=== PATIENT | female | born 1950 | race Two or more races ===

== ENCOUNTER 2018-07-04 17:06 | Emergency (ER) | payer MEDICAID ==
[~2018-07-04] VITALS: Ht 147.3 cm; Wt 68.5 kg
[~2018-07-04 17:06] MED LIST: ACET-868 PO; ACID1TAB14 PO; ATOR20TA PO; CALC667C6 PO; DOCU-141 PO; HEPA500014 SQ; HYDR-3974 PO; INSU100I14 SQ; INSU100V7 SQ; INSU3INS6 SUBCUT; LIDO30CR TP; OMEP20TA5 PO; POLY17PO29 PO
--- NOTE | 2018-07-04 17:06 | NUR ---
PT BIB [facility] FROM [facility],C/O CHEST PAIN,NTG SPRAY AND ASA 162 MG PO GIVEN BY EMS, PT IS AAOX3 HEBREW SPEAKING ONLY, HOOKED TO MONITOR, KEPT RESTED AND COMFORTABLE, WILL CONTINUE TO MONITOR.
--- NOTE | 2018-07-04 17:40 | NUR ---
SEEN AND EXAMINED BY DR. CARDONA.
[2018-07-04] MEDS ORDERED: INSU100I26 SQ (17:43)
[2018-07-04] MEDS ORDERED: BLOO-668 IN (17:43)
[2018-07-04] MEDS ORDERED: METO25TA6 PO (17:43)
[2018-07-04] MEDS ORDERED: METO-295 PO (17:43)
[2018-07-04] MEDS ORDERED: ACET-868 PO (17:43)
[2018-07-04] MEDS ORDERED: MAGN400O6 PO (17:43)
[2018-07-04] MEDS ORDERED: BISA10SU8 RC (17:43)
[2018-07-04] MEDS ORDERED: FOLI0.8T2 PO (17:43)
[2018-07-04] MEDS ORDERED: AMLO10TA7 PO (17:43)
[2018-07-04] MEDS ORDERED: NA P133E RC (17:43)
[2018-07-04] MEDS ORDERED: CLON0.1T PO (17:43)
[2018-07-04] MEDS ORDERED: LISI-603 PO (17:43)
[2018-07-04] MEDS ORDERED: INSU100I34 SQ (17:43)
[2018-07-04 18:17] LABS: BASOPHILS # (AUTO) 0.1 /CMM (0.0-0.2); BASOPHILS % (AUTO) 1.2 % (0.0-2.0); EOSINOPHILS % (AUTO) 4.3 % (0.0-6.0); HEMATOCRIT 38 % (33-45); HEMOGLOBIN 12.4 g/dL (11.5-14.8); LYMPHOCYTES # (AUTO) 0.8 /CMM (0.8-4.8); LYMPHOCYTES % (AUTO) 12.7 % (20.0-44.0); MEAN CORPUSCULAR HGB CONC 33 g/dl (31.0-36.0); MEAN CORPUSCULAR VOLUME 94 fL (82-100); MONOCYTES # (AUTO) 0.6 /CMM (0.1-1.30); MONOCYTES % (AUTO) 9.3 % (2.0-12.0); NEUTROPHILS # (AUTO) 4.5 /CMM (1.8-8.9); NEUTROPHILS % (AUTO) 72.5 % (43.0-81.0); PLATELET COUNT (AUTO) 150 /CMM (150-450); WHITE BLOOD COUNT (AUTO) 6.3 K/uL (4.3-11.0)
[2018-07-04] MEDS ORDERED: ACETAMINOPHEN ES 500 MG TABLET ONE (18:24)
[2018-07-04] MEDS: ACETAMINOPHEN ES 500 MG TABLET PO ONE (18:26)
[2018-07-04 18:28] LABS: CALCIUM, SERUM 9.6 mg/dL (8.5-10.1); CARBON DIOXIDE 31 mmol/L (21-32); CHLORIDE 98 mmol/L (98-107); CREATININE 3.2 mg/dL (0.6-1.3); GLUCOSE 180 mg/dL (74-106); POTASSIUM 3.2 mmol/L (3.5-5.1); SODIUM SERUM 139 mmol/L (136-145); UREA NITROGEN, BLOOD 20 mg/dL (7-18)
[2018-07-04 18:37] LABS: ALANINE AMINOTRANSFERASE 15 U/L (12-78); ALBUMIN 4.1 g/dL (3.4-5.0); ALKALINE PHOSPHATASE 137 U/L (46-116); ASPARTATE AMINOTRANSFERASE 11 U/L (15-37); BILIRUBIN,DIRECT 0.2 mg/dL (0.0-0.2); BILIRUBIN,TOTAL 0.5 mg/dL (0.2-1.0); TOTAL PROTEIN, SERUM 8.2 g/dL (6.4-8.2)
--- NOTE | 2018-07-04 19:38 | NUR ---
REPORT GIVEN TO ANY BELTRAN FOR TI.
--- NOTE | 2018-07-04 19:45 | NUR ---
Pt hypertensive on the monitor. ER aware.
--- NOTE | 2018-07-04 20:37 | NUR ---
Ultrasound at bedside.
[2018-07-04] MEDS: CLONIDINE HCL 0.1 MG TABLET PO ONE (21:15)
--- NOTE | 2018-07-04 21:15 | NUR ---
CALLED [facility] FOR TRANSPORT ETA OF 3612 WAS GIVEN. TRIP#[id number]
[2018-07-04] MEDS ORDERED: CLONIDINE HCL 0.1 MG TABLET ONE (21:16)
--- NOTE | 2018-07-04 22:45 | NUR ---
Patient discharged to home in stable condition. Written and verbal after care instructions given. Patient verbalizes understanding of instruction. IV removed. Catheter intact and site benign. Pressure and 4x4 applied to site. No bleeding noted.
--- NOTE | 2018-07-04 22:45 | NUR ---
GAVE REPORT TO BIANCA FROM [place] [id number] FOR TRANSPORTATION TI
[2018-07-04 22:53] VITALS: BP 185/71
--- NOTE | 2018-07-04 22:53 | NUR ---
ANAND BROOKS FROM [facility] PT RETURNING BACK TO FACILITY
== END 2018-07-04 22:54 | disposition home or self-care (01) ==
LOC: ER 17:10
DX: R07.89 Other chest pain (principal); E11.22 Type 2 diabetes mellitus with diabetic chronic kidney disease; I12.0 Hypertensive chronic kidney disease with stage 5 chronic kidney disease or end stage renal disease; N18.6 End stage renal disease; E78.5 Hyperlipidemia, unspecified; I73.9 Peripheral vascular disease, unspecified; Z99.2 Dependence on renal dialysis; Z98.890 Other specified postprocedural states; Z79.4 Long term (current) use of insulin
CPT/HCPCS: 36415; 71045-TC; 80048-TC; 80076-TC; 84484-TC; 85025-TC; 85730-TC; 93971-TC

== ENCOUNTER 2022-08-01 12:54 | Emergency (ER) | payer MEDICAID ==
[~2022-08-01] VITALS: Ht 162.6 cm; Wt 63.5 kg
[~2022-08-01 12:54] MED LIST changes: -ACID1TAB14 PO; +AMLO-213 PO; -ATOR20TA PO; +BISA10SU11 RC; +BLOO-668 IN; +CLON0.1T PO; +FOLI0.8T2 PO; -HEPA500014 SQ; -INSU100I14 SQ; +INSU100I26 SQ; +INSU100I34 SQ; -INSU100V7 SQ; -INSU3INS6 SUBCUT; -LIDO30CR TP; +LISI20TA30 PO; +MAGN400O6 PO; +METO-295 PO; +METO25TA6 PO; +NA P133E RC; -OMEP20TA5 PO; -POLY17PO29 PO
--- NOTE | 2022-08-01 13:00 | NUR ---
BIB [facility], FINISHED HER TREATMENT AND FISTULA WOULD NOT STOP BLEEDING, FISTULA IS ON HER LEFT UPPER ARM
[2022-08-01] MEDS ORDERED: ONDANSETRON HCL/PF 4 MG/2 ML VIAL IV ONE (13:30)
--- NOTE | 2022-08-01 13:30 | NUR ---
LAB AT BEDSIDE FOR BLOOD DRAW
[2022-08-01] MEDS ORDERED: ONDANSETRON 4 MG TAB.RAPDIS SL ONE (14:00)
--- NOTE | 2022-08-01 14:01 | NUR ---
NO S/S OF BLEEDING ON THE FISTULA SITE
[2022-08-01 14:02] LABS: BASOPHILS # (AUTO) 0.2 K/uL (0.0-0.2); BASOPHILS % (AUTO) 3.6 % (0.0-2.0); EOSINOPHILS % (AUTO) 6.9 % (0.0-6.0); HEMATOCRIT 40 % (33-45); HEMOGLOBIN 12.8 g/dL (11.5-14.8); LYMPHOCYTES # (AUTO) 0.6 K/uL (0.8-4.8); LYMPHOCYTES % (AUTO) 14.6 % (20.0-44.0); MEAN CORPUSCULAR HGB CONC 32 g/dl (31.0-36.0); MEAN CORPUSCULAR VOLUME 88 fL (82-100); MONOCYTES # (AUTO) 0.4 K/uL (0.1-1.30); MONOCYTES % (AUTO) 8.2 % (2.0-12.0); NEUTROPHILS # (AUTO) 2.9 K/uL (1.8-8.9); NEUTROPHILS % (AUTO) 66.7 % (43.0-81.0); PLATELET COUNT (AUTO) 125 K/uL (150-450); RED BLOOD CELL COUNT(AUTO) 4.51 MIL/uL (4.0-5.2); WHITE BLOOD COUNT (AUTO) 4.4 K/uL (4.3-11.0)
[2022-08-01] MEDS ORDERED: ONDANSETRON 4 MG TAB.RAPDIS ONE (14:11)
[2022-08-01 14:39] LABS: ALANINE AMINOTRANSFERASE 14 U/L (12-78); ALBUMIN 3.8 g/dL (3.4-5.0); ALKALINE PHOSPHATASE 185 U/L (46-116); ASPARTATE AMINOTRANSFERASE 17 U/L (15-37); BILIRUBIN,DIRECT 0.2 mg/dL (0.0-0.2); BILIRUBIN,TOTAL 0.6 mg/dL (0.2-1.0); CALCIUM, SERUM 9.1 mg/dL (8.5-10.1); CARBON DIOXIDE 25 mmol/L (21-32); CHLORIDE 95 mmol/L (98-107); GLUCOSE 146 mg/dL (74-106); POTASSIUM 4.4 mmol/L (3.5-5.1); SODIUM SERUM 134 mmol/L (136-145); TOTAL PROTEIN, SERUM 7.7 g/dL (6.4-8.2); UREA NITROGEN, BLOOD 41 mg/dL (7-18)
--- NOTE | 2022-08-01 14:52 | NUR ---
PATIENT ON BED LYING QUITELY RESTING AND SLEEPING
[2022-08-01] MEDS ORDERED: CLONIDINE HCL 0.1 MG TABLET PO ONE (15:30)
[2022-08-01] MEDS ORDERED: CLONIDINE HCL 0.1 MG TABLET ONE (15:34)
[2022-08-01 16:23] VITALS: BP 164/67
--- NOTE | 2022-08-01 16:47 | NUR ---
CALLED [facility] FOR TRANSPORT ETA 30 MINS.
--- NOTE | 2022-08-01 17:08 | NUR ---
[facility] [phone] SISTER CELL #
--- NOTE | 2022-08-01 17:19 | NUR ---
CALLED KELSEAJyotsna SALAZAR [phone] RN [employer] FINISHER PRITI AWARE OF PT RETURNING.
--- NOTE | 2022-08-01 17:19 | NUR ---
report given to EMT transport for TI. [facility] Manuel Garber called,spoke with Liliam,fertilizer processing supervisor, aware that patient is on the way.
== END 2022-08-01 17:22 | disposition home or self-care (01) ==
LOC: ER 12:54
DX: I12.0 Hypertensive chronic kidney disease with stage 5 chronic kidney disease or end stage renal disease (principal); N18.6 End stage renal disease; D63.1 Anemia in chronic kidney disease; E78.5 Hyperlipidemia, unspecified; Z99.2 Dependence on renal dialysis; Z79.899 Other long term (current) drug therapy; Z79.4 Long term (current) use of insulin
CPT/HCPCS: 99285; 93005; 85025; 80048; 80076; 36415; 84484; 85730; 82962; Q0162

== ENCOUNTER 2023-07-31 17:28 | Inpatient (IN) | payer MEDICAID ==
[~2023-07-31] VITALS: Ht 160 cm; Wt 72.6 kg
[2023-07-31] MEDS ORDERED: GELATIN SPONGE,ABSORBABLE 1 EA SPONGE TP ONE (17:59)
[2023-07-31 19:54] LABS: BASOPHILS # (AUTO) 0.1 K/uL (0.0-0.2); BASOPHILS % (AUTO) 0.8 % (0.0-2.0); EOSINOPHILS # (AUTO) 0.3 K/uL (0.0-0.7); HEMATOCRIT 29 % (33-45); HEMOGLOBIN 9.4 g/dL (11.5-14.8); LYMPHOCYTES % (AUTO) 15.7 % (20.0-44.0); MEAN CORPUSCULAR HEMOGLOBIN 28 PG (26.0-33.0); MEAN CORPUSCULAR HGB CONC 33 g/dl (31.0-36.0); MEAN CORPUSCULAR VOLUME 86 fL (82-100); MONOCYTES # (AUTO) 0.7 K/uL (0.1-1.30); NEUTROPHILS # (AUTO) 4.3 K/uL (1.8-8.9); NEUTROPHILS % (AUTO) 67.5 % (43.0-81.0); PLATELET COUNT (AUTO) 156 K/uL (150-450); RED BLOOD CELL COUNT(AUTO) 3.33 MIL/uL (4.0-5.2); WHITE BLOOD COUNT (AUTO) 6.4 K/uL (4.3-11.0)
[2023-07-31] MEDS ORDERED: ASCO500T21 PO (19:58)
[2023-07-31] MEDS ORDERED: CYAN-51 PO (19:58)
[2023-07-31] MEDS ORDERED: CLOP75TA15 PO (19:58)
[2023-07-31] MEDS ORDERED: APIX5TAB PO (19:58)
[2023-07-31] MEDS ORDERED: SUCR1TAB PO (19:58)
[2023-07-31] MEDS ORDERED: INSU100I4 SQ ×2 (19:58)
[2023-07-31] MEDS ORDERED: ACET-637 PO (19:58)
[2023-07-31] MEDS ORDERED: PANT40TA49 PO (19:58)
[2023-07-31] MEDS ORDERED: ATOR20TA PO (19:58)
[2023-07-31] MEDS ORDERED: ASPI-1169 PO (19:58)
[2023-07-31] MEDS ORDERED: METO50TA16 PO (19:58)
[2023-07-31] MEDS ORDERED: FERR325T23 PO (19:58)
[2023-07-31] MEDS ORDERED: AMIN30LI2 PO (19:58)
[2023-07-31 20:12] LABS: INR 1.21 (0.91-1.10); PARTIAL THROMBOPLASTIN TIME 39.7 SEC (24.3-34.3); PROTHROMBIN TIME 12.7 SECS (9.2-11.1)
[2023-07-31 20:17] LABS: ALANINE AMINOTRANSFERASE 21 U/L (12-78); ALBUMIN 3.1 g/dL (3.4-5.0); ALKALINE PHOSPHATASE 167 U/L (46-116); ASPARTATE AMINOTRANSFERASE 28 U/L (15-37); BILIRUBIN,DIRECT 0.1 mg/dL (0.0-0.2); BILIRUBIN,TOTAL 0.4 mg/dL (0.2-1.0); CALCIUM, SERUM 9.4 mg/dL (8.5-10.1); CARBON DIOXIDE 28 mmol/L (21-32); TOTAL PROTEIN, SERUM 7.1 g/dL (6.4-8.2)
[2023-07-31 20:19] LABS: CHLORIDE 96 mmol/L (98-107); CREATININE 4.9 mg/dL (0.6-1.3); GLUCOSE 230 mg/dL (74-106); SODIUM SERUM 134 mmol/L (136-145); UREA NITROGEN, BLOOD 42 mg/dL (7-18)
[2023-07-31] MEDS ORDERED: ACETAMINOPHEN 325 MG TABLET PO PRN ×2 (20:30)
[2023-07-31] MEDS ORDERED: MAG HYDROX/AL HYDROX/SIMETH 30 ML UDC PO PRN (20:30)
[2023-07-31] MEDS ORDERED: ONDANSETRON HCL/PF 4 MG/2 ML VIAL IVP PRN (20:30)
[2023-07-31] MEDS ORDERED: DEXTROSE 50%-WATER 50 ML DISP.SYRIN IV PRN (20:30)
[2023-07-31] MEDS ORDERED: Z GUARD REMEDY 4 OZ OINT TP PRN (20:30)
[2023-07-31] MEDS ORDERED: ZOLPIDEM TARTRATE 5 MG TABLET PO PRN (20:30)
[2023-07-31 22:50] VITALS: BP 149/58; TEMP 97.7; O2SAT 100
[2023-07-31] MEDS: SUCRALFATE 1 G TABLET PO SCH (23:23)
[2023-07-31] MEDS: ATORVASTATIN 10 MG TABLET PO SCH (23:24)
[2023-07-31] MEDS: BLOOD SUGAR DIAGNOSTIC 1 EACH STRIP IN SCH (23:31)
[2023-07-31] MEDS: INSULIN REGULAR, HUMAN 100 UNIT/ML 3 ML VIAL SQ PRN (23:40)
[2023-07-31 23:54] VITALS: BP 140/58; TEMP 98; O2SAT 100
[2023-08-01 06:43] LABS: BASOPHILS % (AUTO) 0.9 % (0.0-2.0); EOSINOPHILS # (AUTO) 0.4 K/uL (0.0-0.7); EOSINOPHILS % (AUTO) 7.5 % (0.0-6.0); HEMATOCRIT 29 % (33-45); HEMOGLOBIN 9.4 g/dL (11.5-14.8); LYMPHOCYTES # (AUTO) 1.1 K/uL (0.8-4.8); LYMPHOCYTES % (AUTO) 20.1 % (20.0-44.0); MEAN CORPUSCULAR HEMOGLOBIN 28 PG (26.0-33.0); MEAN CORPUSCULAR HGB CONC 33 g/dl (31.0-36.0); MEAN CORPUSCULAR VOLUME 87 fL (82-100); MONOCYTES # (AUTO) 0.5 K/uL (0.1-1.30); MONOCYTES % (AUTO) 9.9 % (2.0-12.0); NEUTROPHILS # (AUTO) 3.4 K/uL (1.8-8.9); NEUTROPHILS % (AUTO) 61.6 % (43.0-81.0); PLATELET COUNT (AUTO) 157 K/uL (150-450); RED BLOOD CELL COUNT(AUTO) 3.32 MIL/uL (4.0-5.2); WHITE BLOOD COUNT (AUTO) 5.5 K/uL (4.3-11.0)
[2023-08-01 07:13] LABS: ALANINE AMINOTRANSFERASE 16 U/L (12-78); ALBUMIN 2.8 g/dL (3.4-5.0); ALKALINE PHOSPHATASE 117 U/L (46-116); ASPARTATE AMINOTRANSFERASE 22 U/L (15-37); BILIRUBIN,TOTAL 0.4 mg/dL (0.2-1.0); CALCIUM, SERUM 9.2 mg/dL (8.5-10.1); CARBON DIOXIDE 24 mmol/L (21-32); CHLORIDE 97 mmol/L (98-107); CREATININE 5.9 mg/dL (0.6-1.3); GLUCOSE 150 mg/dL (74-106); MAGNESIUM 2.8 mg/dL (1.8-2.4); POTASSIUM 4.7 mmol/L (3.5-5.1); SODIUM SERUM 134 mmol/L (136-145); TOTAL PROTEIN, SERUM 6.7 g/dL (6.4-8.2); UREA NITROGEN, BLOOD 49 mg/dL (7-18)
[2023-08-01 07:30] VITALS: BP 147/56; TEMP 97.5; O2SAT 100
[2023-08-01] MEDS: METOPROLOL TARTRATE 50 MG TABLET PO SCH (08:33)
[2023-08-01] MEDS: VIT B CMPLX 3/FA/VIT C/BIOTIN 1 TAB TABLET PO SCH (08:33)
[2023-08-01] MEDS: ASCORBIC ACID 500 MG TABLET PO SCH (08:33)
[2023-08-01] MEDS: FERROUS SULFATE (325 MG) 325 MG/TAB TABLET PO SCH (08:33)
[2023-08-01] MEDS: CALCIUM ACETATE 667 MG CAP/TAB PO SCH (08:34)
[2023-08-01] MEDS: AMLODIPINE BESYLATE 10 MG TABLET PO SCH (08:34)
[2023-08-01] MEDS: CYANOCOBALAMIN 500 MCG TABLET PO SCH (08:34)
[2023-08-01] MEDS: PANTOPRAZOLE 40 MG TABLET.DR PO SCH (08:34)
[2023-08-01] MEDS: PROSOURCE / PROSTAT (PYXIS) 30 ML UDC PO SCH (10:02)
[2023-08-01 15:58] VITALS: BP 151/52; TEMP 99.7; O2SAT 98
[2023-08-01] MEDS ORDERED: IODIXANOL 320MG/ML 50 ML IV ONE (16:32)
[2023-08-01] MEDS ORDERED: LIDOCAINE HCL/MPF 1% 30 ML VIAL IJ ONE (16:32)
[2023-08-01 22:27] VITALS: BP 152/59; TEMP 97.7; O2SAT 97
[2023-08-02 06:27] LABS: BASOPHILS # (AUTO) 0.1 K/uL (0.0-0.2); BASOPHILS % (AUTO) 1.2 % (0.0-2.0); EOSINOPHILS # (AUTO) 0.5 K/uL (0.0-0.7); EOSINOPHILS % (AUTO) 7.6 % (0.0-6.0); HEMATOCRIT 26 % (33-45); HEMOGLOBIN 8.9 g/dL (11.5-14.8); LYMPHOCYTES # (AUTO) 1.5 K/uL (0.8-4.8); LYMPHOCYTES % (AUTO) 25.3 % (20.0-44.0); MEAN CORPUSCULAR HEMOGLOBIN 29 PG (26.0-33.0); MEAN CORPUSCULAR HGB CONC 34 g/dl (31.0-36.0); MEAN CORPUSCULAR VOLUME 85 fL (82-100); MONOCYTES # (AUTO) 0.5 K/uL (0.1-1.30); MONOCYTES % (AUTO) 7.7 % (2.0-12.0); NEUTROPHILS # (AUTO) 3.5 K/uL (1.8-8.9); NEUTROPHILS % (AUTO) 58.2 % (43.0-81.0); PLATELET COUNT (AUTO) 167 K/uL (150-450); RED BLOOD CELL COUNT(AUTO) 3.11 MIL/uL (4.0-5.2); RED CELL DISTRIBUTION WIDTH 19.2 % (11.5-15.0)
[2023-08-02 06:38] LABS: CALCIUM, SERUM 9.5 mg/dL (8.5-10.1); CARBON DIOXIDE 27 mmol/L (21-32); CHLORIDE 94 mmol/L (98-107); GLUCOSE 175 mg/dL (74-106); POTASSIUM 4.8 mmol/L (3.5-5.1); SODIUM SERUM 133 mmol/L (136-145); UREA NITROGEN, BLOOD 69 mg/dL (7-18)
[2023-08-02 06:45] LABS: CREATININE 7.5 mg/dL (0.6-1.3)
[2023-08-02 08:09] VITALS: BP 138/60; TEMP 97.9; O2SAT 98
[2023-08-02] MEDS: CLOPIDOGREL BISULFATE 75 MG TABLET PO SCH (09:03)
[2023-08-02] MEDS: APIXABAN 5 MG TABLET PO SCH (09:04)
[2023-08-02] MEDS: ASPIRIN 81 MG TAB.CHEW PO SCH (09:04)
[2023-08-02] MEDS: MAGNESIUM HYDROXIDE 30 ML UDC PO PRN (12:13)
[2023-08-02 15:45] VITALS: BP 157/58; TEMP 99.1; O2SAT 97
[2023-08-02 20:00] VITALS: BP 169/54; TEMP 98.2; O2SAT 95
[2023-08-02] MEDS: ACETAMINOPHEN ES 500 MG TABLET PO PRN (22:20)
[2023-08-03 07:28] LABS: CALCIUM, SERUM 9.2 mg/dL (8.5-10.1); CARBON DIOXIDE 31 mmol/L (21-32); CHLORIDE 94 mmol/L (98-107); CREATININE 5.5 mg/dL (0.6-1.3); GLUCOSE 124 mg/dL (74-106); POTASSIUM 4.6 mmol/L (3.5-5.1); SODIUM SERUM 133 mmol/L (136-145); UREA NITROGEN, BLOOD 49 mg/dL (7-18)
[2023-08-03 07:37] LABS: BASOPHILS % (AUTO) 0.6 % (0.0-2.0); EOSINOPHILS # (AUTO) 0.5 K/uL (0.0-0.7); HEMATOCRIT 26 % (33-45); HEMOGLOBIN 8.8 g/dL (11.5-14.8); LYMPHOCYTES # (AUTO) 1.4 K/uL (0.8-4.8); LYMPHOCYTES % (AUTO) 17.9 % (20.0-44.0); MEAN CORPUSCULAR HEMOGLOBIN 29 PG (26.0-33.0); MEAN CORPUSCULAR HGB CONC 34 g/dl (31.0-36.0); MEAN CORPUSCULAR VOLUME 85 fL (82-100); MONOCYTES # (AUTO) 0.7 K/uL (0.1-1.30); MONOCYTES % (AUTO) 8.7 % (2.0-12.0); NEUTROPHILS % (AUTO) 65.8 % (43.0-81.0); PLATELET COUNT (AUTO) 173 K/uL (150-450); RED BLOOD CELL COUNT(AUTO) 3.08 MIL/uL (4.0-5.2); RED CELL DISTRIBUTION WIDTH 18.6 % (11.5-15.0); WHITE BLOOD COUNT (AUTO) 7.6 K/uL (4.3-11.0)
[2023-08-03 08:30] VITALS: BP 180/67; TEMP 98.4; O2SAT 98
[2023-08-03 11:10] LABS: HEPATITIS B SURFACE AB Reactive (.)
== END 2023-08-03 15:33 | DRG 180 ==
LOC: ER 17:31 → MED 22:07
PROVIDERS: ADMIT Nurse Practitioner Acute Care; ATTEND Nurse Practitioner Acute Care
PROC: 037Y3ZZ Dilation of Upper Artery, Percutaneous Approach (ICD-10-PCS; principal; 2023-08-01)
PROC: B50WYZZ Plain Radiography of Dialysis Shunt/Fistula using Other Contrast (ICD-10-PCS; 2023-08-01)
PROC: 5A1D70Z Performance of Urinary Filtration, Intermittent, Less than 6 Hours Per Day (ICD-10-PCS; 2023-08-02)
DX: T82.858A Stenosis of other vascular prosthetic devices, implants and grafts, initial encounter (principal); I12.0 Hypertensive chronic kidney disease with stage 5 chronic kidney disease or end stage renal disease; E44.0 Moderate protein-calorie malnutrition; D63.1 Anemia in chronic kidney disease; E88.09 Other disorders of plasma-protein metabolism, not elsewhere classified; L97.528 Non-pressure chronic ulcer of other part of left foot with other specified severity; E11.22 Type 2 diabetes mellitus with diabetic chronic kidney disease; N18.6 End stage renal disease; K21.9 Gastro-esophageal reflux disease without esophagitis; Z79.4 Long term (current) use of insulin; Z79.82 Long term (current) use of aspirin; Z99.2 Dependence on renal dialysis; Z68.28 Body mass index [BMI] 28.0-28.9, adult; E11.51 Type 2 diabetes mellitus with diabetic peripheral angiopathy without gangrene; E11.42 Type 2 diabetes mellitus with diabetic polyneuropathy; I70.245 Atherosclerosis of native arteries of left leg with ulceration of other part of foot; Y83.2 Surgical operation with anastomosis, bypass or graft as the cause of abnormal reaction of the patient, or of later complication, without mention of misadventure at the time of the procedure; E78.5 Hyperlipidemia, unspecified; Y92.129 Unspecified place in nursing home as the place of occurrence of the external cause
CPT/HCPCS: 36415; 71045-TC; 80048-TC; 80053-TC; 80076-TC; 82962-TC; 83735-TC; 84100-TC; 85025-TC; 85730-TC; 86706; 86850-TC; 87340; 97110-TC; 97116-TC; 97530-TC; A6403; G0378; J1644; J1815; J3490; J7030